=== PATIENT | female | born 1985 | race American Indian/Alaskan Native ===

== ENCOUNTER 2020-03-13 13:26 | Inpatient (IN) | payer MEDICAID, OTHER ==
[2020-03-13] MEDS ORDERED: Sodium Chloride 0.9% 1,000 ML IV ONE (13:56)
[2020-03-13] MEDS ORDERED: Acetaminophen 500 MG Tab PO ONE (13:56)
[2020-03-13] MEDS ORDERED: Sodium Chloride 0.9% 10 ML Syringe FLUSH PRN (13:56)
[2020-03-13] MEDS ORDERED: Sodium Chloride 0.9% 2.5 ML Syringe FLUSH PRN (13:56)
[2020-03-13] MEDS ORDERED: Ketorolac 15 MG/ML SDV IVPUSH ONE (13:57)
--- NOTE | 2020-03-13 13:59 | EDM.PDOC ---
ED HPI GENERAL MEDICAL PROBLEM - General Chief Complaint: Respiratory Problem Stated Complaint: SHORTNESS OF BREATH,COUGH,WEAK Time Seen by Provider: 03/13/20 13:45 Source of Information: Reports: Patient History Limitations: Reports: No Limitations - History of Present Illness INITIAL COMMENTS - FREE TEXT/NARRATIVE: 34-year-old female no significant past medical history presents for cough, chest tightness, shortness of breath, body aches, subjective fever for the last week. She notes that she did have positive exposure to someone that was exposed to Covid while in court last week. She states that about a week ago she had some body aches, generalized weakness, nonproductive cough. Symptoms seem to be improving, but then a couple of days ago she started to have a productive cough, worsening shortness of breath, worsening body aches. generalized Pain Score (Numeric/FACES): 9 - Related Data Allergies Allergy/AdvReac Type Severity Reaction Status Date / Time No Known Allergies Allergy Verified 03/25/14 18:33 [facility] Home Meds: Home Meds Multivitamin [Multiple Vitamins] 1 tab PO DAILY 03/13/20 [History] Past Medical History - Past Health History Medical/Surgical History: Denies Medical/Surgical History Other Gastrointestinal History: gall stones IMAGING ASSISTANT History: Reports: Other IMAGING ASSISTANT History: Other Musculoskeletal History: taylor in bilat knees Neurological History: Reports: Migraines - Infectious Disease History Infectious Disease History: Reports: None - Past Surgical History GI Surgical History: Reports: Cholecystectomy Female Surgical History: Reports: Tubal Ligation Social & Family History - Family History Family Medical History: No Pertinent Family History - Caffeine Use Caffeine Use: Reports: None - Recreational Drug Use Recreational Drug Use: No ED ROS GENERAL - Review of Systems Review Of Systems: Comprehensive ROS is negative, except as noted in HPI. ED EXAM, GENERAL - Physical Exam Exam: See Below Exam Limited By: No Limitations General Appearance: Alert, WD/WN, No Apparent Distress Throat/Mouth: Normal Inspection, Normal Oropharynx, Normal Voice, No Airway Compromise Head: Atraumatic, Normocephalic Neck: Normal Inspection Respiratory/Chest: No Respiratory Distress, Lungs Clear, Normal Breath Sounds, No Accessory Muscle Use Cardiovascular: Normal Peripheral Pulses, Regular Rate, Rhythm Extremities: Normal Inspection Neurological: Alert, Normal Gait Psychiatric: Normal Affect, Normal Mood Skin Exam: Warm, Dry, Intact #1 Interpretation EKG Date: 03/13/20 Time: 16:40 Rhythm: NSR Rate (Beats/Min): 71 [place]: Normal P-Wave: Present QRS: Normal ST-T: Normal QT: Prolonged (640) MO/PQ Interval: 162 Comparison: NA - No Prior EKG (non ischemic) Course - Vital Signs Last Recorded V/S: Last Vital Signs Temp 98.0 F 03/13/20 13:43 Pulse 93 03/13/20 13:43 Resp 18 03/13/20 13:43 BP 130/80 03/13/20 13:43 Pulse Ox 93 L 03/13/20 13:43 - Orders/Labs/Meds Orders: Active Orders 24 hr Category Date Time Status EKG Documentation Completion [RC] STAT Care 03/13/20 15:04 Active Pulse Oximetry [RC] ASDIRECTED Care 03/13/20 13:56 Active CORONAVIRUS COVID-19 PCR PHL Stat Lab 03/13/20 14:22 Received Sodium Chloride 0.9% [Saline Flush] Med 03/13/20 13:56 Active 10 ml FLUSH ASDIRECTED PRN Sodium Chloride 0.9% [Saline Flush] Med 03/13/20 13:56 Active 2.5 ml FLUSH ASDIRECTED PRN Saline Lock Insert [OM.PC] Stat Oth 03/13/20 13:56 Ordered Medication Orders Sodium Chloride (Saline Flush) 10 ml FLUSH ASDIRECTED PRN PRN Reason: Keep Vein Open Last Admin: 03/13/20 14:21 Dose: 10 ml Documented by: GIULIANO Sodium Chloride (Saline Flush) 2.5 ml FLUSH ASDIRECTED PRN PRN Reason: Keep Vein Open Last Admin: 03/13/20 14:20 Dose: 2.5 ml Documented by: GIULIANO Labs: Laboratory Tests 03/13/20 03/13/20 03/13/20 Range/Units 14:15 14:15 14:15 WBC 4.68 (4.0-11.0) K/uL RBC 5.21 (4.30-5.90) M/uL Hgb 14.2 (12.0-16.0) g/dL Hct 43.1 (36.0-46.0) % MCV 82.7 (80.0-98.0) fL MCH 27.3 (27.0-32.0) pg MCHC 32.9 (31.0-37.0) g/dL RDW Std Deviation 42.6 (28.0-62.0) fl RDW Coeff of Enedelia 14 (11.0-15.0) % Plt Count 153 (150-400) K/uL MPV 10.30 (7.40-12.00) fL Neut % (Auto) 69.0 (48.0-80.0) % Lymph % (Auto) 23.3 (16.0-40.0) % Tillman % (Auto) 7.3 (0.0-15.0) % Eos % (Auto) 0.2 (0.0-7.0) % Baso % (Auto) 0.2 (0.0-1.5) % Neut # (Auto) 3.2 (1.4-5.7) K/uL Lymph # (Auto) 1.1 (0.6-2.4) K/uL Tillman # (Auto) 0.3 (0.0-0.8) K/uL Eos # (Auto) 0.0 (0.0-0.7) K/uL Baso # (Auto) 0.0 (0.0-0.1) K/uL Nucleated RBC % 0.0 /100WBC Nucleated RBCs # 0 K/uL Lactate 1.3 (0.20-2.00) mmol/L Sodium 138 (136-145) mmol/L Potassium 3.7 (3.5-5.1) mmol/L Chloride 103 (98-107) mmol/L Carbon Dioxide 25.8 (21.0-32.0) mmol/L BUN 9 (7.0-18.0) mg/dL Creatinine 0.8 (0.6-1.0) mg/dL Est Cr Clr Drug Dosing 78.37 mL/min Estimated GFR (MDRD) > 60.0 ml/min Glucose 96 (74-106) mg/dL Calcium 8.0 L (8.5-10.1) mg/dL Magnesium 2.1 (1.8-2.4) mg/dL Total Bilirubin 0.3 (0.2-1.0) mg/dL AST 142 H (15-37) IU/L ALT 172 H (14-63) IU/L Alkaline Phosphatase 97 (46-116) U/L Troponin I 0.063 H* (0.000-0.056) ng/mL C-Reactive Protein 1.80 H (0.00-0.90) mg/dL Total Protein 8.0 (6.4-8.2) g/dL Albumin 3.5 (3.4-5.0) g/dL Globulin 4.5 H (2.6-4.0) g/dL Albumin/Globulin Ratio 0.8 L (0.9-1.6) SARS CoV-2 RNA Rapid YANNI (NEGATIVE) 03/13/20 03/13/20 Range/Units 14:22 17:15 WBC (4.0-11.0) K/uL RBC (4.30-5.90) M/uL Hgb (12.0-16.0) g/dL Hct (36.0-46.0) % MCV (80.0-98.0) fL MCH (27.0-32.0) pg MCHC (31.0-37.0) g/dL RDW Std Deviation (28.0-62.0) fl RDW Coeff of Enedelia (11.0-15.0) % Plt Count (150-400) K/uL MPV (7.40-12.00) fL Neut % (Auto) (48.0-80.0) % Lymph % (Auto) (16.0-40.0) % Tillman % (Auto) (0.0-15.0) % Eos % (Auto) (0.0-7.0) % Baso % (Auto) (0.0-1.5) % Neut # (Auto) (1.4-5.7) K/uL Lymph # (Auto) (0.6-2.4) K/uL Tillman # (Auto) (0.0-0.8) K/uL Eos # (Auto) (0.0-0.7) K/uL Baso # (Auto) (0.0-0.1) K/uL Nucleated RBC % /100WBC Nucleated RBCs # K/uL Lactate (0.20-2.00) mmol/L Sodium (136-145) mmol/L Potassium (3.5-5.1) mmol/L Chloride (98-107) mmol/L Carbon Dioxide (21.0-32.0) mmol/L BUN (7.0-18.0) mg/dL Creatinine (0.6-1.0) mg/dL Est Cr Clr Drug Dosing mL/min Estimated GFR (MDRD) ml/min Glucose (74-106) mg/dL Calcium (8.5-10.1) mg/dL Magnesium (1.8-2.4) mg/dL Total Bilirubin (0.2-1.0) mg/dL AST (15-37) IU/L ALT (14-63) IU/L Alkaline Phosphatase (46-116) U/L Troponin I 0.058 H* (0.000-0.056) ng/mL C-Reactive Protein (0.00-0.90) mg/dL Total Protein (6.4-8.2) g/dL Albumin (3.4-5.0) g/dL Globulin (2.6-4.0) g/dL Albumin/Globulin Ratio (0.9-1.6) SARS CoV-2 RNA Rapid YANNI POSITIVE H (NEGATIVE) Meds: Medications Generic Name Dose Route Start Last Admin Trade Name Freq PRN Reason Stop Dose Admin Sodium Chloride 10 ml 03/13/20 13:56 03/13/20 14:21 Saline Flush FLUSH 10 ml ASDIRECTED PRN Administration Keep Vein Open Sodium Chloride 2.5 ml 03/13/20 13:56 03/13/20 14:20 Saline Flush FLUSH 2.5 ml ASDIRECTED PRN Administration Keep Vein Open Discontinued Medications Generic Name Dose Route Start Last Admin Trade Name Freq PRN Reason Stop Dose Admin Acetaminophen 1,000 mg 03/13/20 13:56 03/13/20 14:20 Tylenol Extra Strength PO 03/13/20 13:57 1,000 mg ONETIME ONE Administration Sodium Chloride 1,000 mls @ 999 mls/hr 03/13/20 13:56 03/13/20 14:19 Normal Saline IV 03/13/20 14:56 999 mls/hr .Bolus ONE Administration Iopamidol 100 ml 03/13/20 16:00 03/13/20 16:03 Isovue Multipack-370 (76%) IVPUSH 03/13/20 16:01 100 ml ONETIME STA Administration Ketorolac Tromethamine 15 mg 03/13/20 13:57 03/13/20 14:20 Toradol IVPUSH 03/13/20 13:58 15 mg ONETIME ONE Administration - Re-Assessments/Exams Free Text/Narrative Re-Assessment/Exam: 03/13/20 14:07 Patient symptoms are highly suggestive of COVID-19 infection. Patient's oxygen saturations ranged from 92 to 94% on room air. Will follow up labs, chest x- ray, COVID-19 swab. Will treat symptomatically with IV fluid bolus, Toradol, acetaminophen. 03/13/20 15:06 Patient's Covid test is positive. She is also incidentally noted to have positive troponin concerning for myocarditis versus pulmonary embolism. Will get CTA chest to rule out pulmonary embolism. Patient will need admission. 03/13/20 18:03 Repeat troponin is not uptrending. Will admit patient. Departure - Departure Time of Disposition: 18:03 Disposition: Admitted As Inpatient 66 Condition: Good Clinical Impression: COVID-19 - Discharge Information Referrals: PCP,None [Primary Care Provider] - Forms: ED Department Discharge Sepsis Event Note (ED) - Evaluation Sepsis Screening Result: No Definite Risk - Focused Exam Vital Signs: Vital Signs Temp Pulse Resp BP Pulse Ox 03/13/20 13:43 98.0 F 93 18 130/80 93 L - My Orders Last 24 Hours: My Active Orders 03/13/20 13:56 Pulse Oximetry [RC] ASDIRECTED Sodium Chloride 0.9% [Saline Flush] 10 ml FLUSH ASDIRECTED PRN Sodium Chloride 0.9% [Saline Flush] 2.5 ml FLUSH ASDIRECTED PRN Saline Lock Insert [OM.PC] Stat 03/13/20 14:22 CORONAVIRUS COVID-19 PCR PHL Stat 03/13/20 15:04 EKG Documentation Completion [RC] STAT - Assessment/Plan Last 24 Hours: My Active Orders 03/13/20 13:56 Pulse Oximetry [RC] ASDIRECTED Sodium Chloride 0.9% [Saline Flush] 10 ml FLUSH ASDIRECTED PRN Sodium Chloride 0.9% [Saline Flush] 2.5 ml FLUSH ASDIRECTED PRN Saline Lock Insert [OM.PC] Stat 03/13/20 14:22 CORONAVIRUS COVID-19 PCR PHL Stat 03/13/20 15:04 EKG Documentation Completion [RC] STAT
--- NOTE | 2020-03-13 14:40 | CR ---
Indication: Shortness of breath and cough Comparison: None available. Technique: Single AP view chest Findings: There is hyperinflation and chronic interstitial change. There is demonstration of extensive interstitial and airspace opacities of the bilateral hemithoraces likely representing developing multifocal infiltrates. The cardiac silhouette is mildly prominent. The bony thorax is grossly intact. Impression: There is extensive interstitial and airspace opacities of the bilateral hemithoraces likely representing multifocal infiltrates. Dictated by Shreyas Shafer MD @ Mar 13 2020 2:37PM Signed by Dr. Shreyas Shafer @ Mar 13 2020 2:40PM
[2020-03-13 14:59] LABS: BLOOD UREA NITROGEN,BUN 9 mg/dL (7.0-18.0); CARBON DIOXIDE,CO2 25.8 mmol/L (21.0-32.0); CHLORIDE,CL 103 mmol/L (98-107); GLUCOSE RANDOM 96 mg/dL (74-106); POTASSIUM,K 3.7 mmol/L (3.5-5.1); SODIUM,NA 138 mmol/L (136-145)
[2020-03-13] MEDS ORDERED: Iopamidol 755 MG/ML 500 ML Multipack Bottle IVPUSH STA (16:00)
--- NOTE | 2020-03-13 16:20 | CT ---
Indication: Positive for treadwell virus 19 infection, elevated troponin Technique: Volumetric multidetector CT images of the chest were obtained after the administration of IV contrast. 100 cc Isovue 370 Comparison: None available. Findings: The thoracic inlet and thyroid gland are unremarkable. The thoracic aorta is nonaneurysmal. There is no definite central filling defect to suggest pulmonary embolism. Exam is mildly limited due to bolus timing and body habitus. There are reactive mediastinal and hilar lymph nodes. There is no axillary adenopathy. There is moderate central bronchial thickening and mucoid impaction of the lower lobe bronchi. There are ground-glass and consolidative airspace opacities predominantly in the peripheral upper in lower lobes likely representing sequela of atypical viral infiltrate. There is no pleural effusion or pneumothorax. There is no evidence of pulmonary mass or suspicious pulmonary nodule. The partially visualized upper abdominal viscera demonstrates marked hepatomegaly and hepatic steatosis. The thoracic vertebral body heights are grossly maintained with minimal endplate Schmorl`s defects. There is no significant spondylolisthesis or displaced fracture. Impression: No definite evidence of pulmonary embolus. Mildly limited due to contrast bolus timing and body habitus. Extensive ground-glass and airspace opacities consistent with history of atypical viral infiltrate. Please note that all CT scans at this facility use dose modulation, iterative reconstruction, and/or weight-based dosing when appropriate to reduce radiation dose to as low as reasonably achievable. Dictated by Shreyas Shafer MD @ Mar 13 2020 4:14PM Signed by Dr. Shreyas Shafer @ Mar 13 2020 4:19PM
[2020-03-13] MEDS ORDERED: Dexamethasone 10 MG/ML SDV IVPUSH ONE (18:06)
[2020-03-13] MEDS ORDERED: Ondansetron 4 MG Tab.DIS PO PRN (18:54)
--- NOTE | 2020-03-13 19:06 | PCM.HP.2 ---
<Valerie Browne - Last Filed: 03/13/20 19:27> H&P History of Present Illness - General Date of Service: 03/13/20 Admit Problem/Dx: Admission Diagnosis/Problem Admission Diagnosis/Problem Viral disease History Limitations: Reports: No Limitations - History of Present Illness Initial Comments - Free Text/Narative: Pt is a 34-year-old female with no significant past medical history who presents for worsening of her s.o.b, cough, chest tightness, and body aches which all started 1 week ago when she was exposed to someone with previous Covid exposure while in court last week. She states that about a week ago she had some body aches, generalized weakness, nonproductive cough. Symptoms had been improving, but then a couple of days ago she started to have a productive cough, worsening shortness of breath, worsening body aches and noted chest pain with cough. Denied any fever, chills, nausea, vomiting, diarrhea. No history of prev noted chest pain. Denies any alleviating factors but states her chest pain is worsened with cough. Onset of Symptoms: Reports: Gradual Duration of Symptoms: Reports: Getting Worse Location: Reports: Chest Quality: Reports: Ache Severity: Moderate Worsens with: Reports: Other (cough) Associated Symptoms: Reports: Cough, Weakness generalized Pain Score (Numeric/FACES): 9 - Related Data Allergies/Adverse Reactions: Allergies Allergy/AdvReac Type Severity Reaction Status Date / Time No Known Allergies Allergy Verified 03/14/20 16:03 Home Medications: Home Meds Multivitamin [Multiple Vitamins] 1 tab PO DAILY 03/13/20 [History] Albuterol/Ipratropium [Combivent Respimat] 1 gm INH Q4HRRT 30 Days #1 inhaler 03/15/20 [Rx] Benzonatate [Tessalon Perle] 100 mg PO TID 14 Days #42 capsule 03/15/20 [Rx] Codeine/guaiFENesin [Robitussin AC] 5 ml PO Q4H 30 Days #1 cup 03/15/20 [Rx] Past Medical History - Past Health History Medical/Surgical History: Denies Medical/Surgical History Other Gastrointestinal History: gall stones 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 OB/BYN History: Other Musculoskeletal History: taylor in bilat knees Neurological History: Reports: Migraines - Infectious Disease History Infectious Disease History: Reports: None - Past Surgical History GI Surgical History: Reports: Cholecystectomy Female Surgical History: Reports: Tubal Ligation Social & Family History - Family History Family Medical History: No Pertinent Family History - Caffeine Use Caffeine Use: Reports: None - Recreational Drug Use Recreational Drug Use: No H&P Review of Systems - Review of Systems: Review Of Systems: Comprehensive ROS is negative, except as noted in HPI. Exam - Exam Exam: See Below - Vital Signs Vital Signs: Last Vital Signs Temp 98.0 F 03/13/20 13:43 Pulse 93 03/13/20 13:43 Resp 18 03/13/20 13:43 BP 130/80 03/13/20 13:43 Pulse Ox 93 L 03/13/20 13:43 Weight: 113.398 kg - Exam Quality Assessment: DVT Prophylaxis. No: Supplemental Oxygen General: Alert, Oriented, Cooperative HEENT: Conjunctiva Clear, EOMI, Mucosa Moist & [place], Pupils Equal, Pupils Reactive, PERRLA Neck: Supple, Trachea Midline Lungs: Clear to Auscultation, Normal Respiratory Effort Cardiovascular: Regular Rate, Regular Rhythm GI/Abdominal Exam: Normal Bowel Sounds, Soft, Non-Tender Extremities: Normal Inspection, Normal Range of Motion, No Pedal Edema, Normal Capillary Refill Peripheral Pulses: 2+: Radial (L), Radial (R), Dorsalis Pedis (L), Dorsalis Pedis (R) Skin: Warm, Dry, Intact Neurological: Cranial Nerves Intact, Reflexes Equal Bilateral Neuro Extensive - Mental Status: Alert, Oriented x3, Normal Mood/Affect, Normal Cognition, Memory Intact Neuro Extensive - Motor, Sensory, Reflexes: CN II-XII Intact, Normal Gait, Normal Reflexes DTR: 2+: Bicep (L), Bicep (R), Patella (L), Patella (R) Psychiatric: Alert, Normal Affect, Normal Mood - Patient Data Lab Results Last 24 hrs: Laboratory Results - last 24 hr 03/13/20 03/13/20 03/13/20 Range/Units 14:15 14:15 14:15 WBC 4.68 (4.0-11.0) K/uL RBC 5.21 (4.30-5.90) M/uL Hgb 14.2 (12.0-16.0) g/dL Hct 43.1 (36.0-46.0) % MCV 82.7 (80.0-98.0) fL MCH 27.3 (27.0-32.0) pg MCHC 32.9 (31.0-37.0) g/dL RDW Std Deviation 42.6 (28.0-62.0) fl RDW Coeff of Enedelia 14 (11.0-15.0) % Plt Count 153 (150-400) K/uL MPV 10.30 (7.40-12.00) fL Neut % (Auto) 69.0 (48.0-80.0) % Lymph % (Auto) 23.3 (16.0-40.0) % Elk % (Auto) 7.3 (0.0-15.0) % Eos % (Auto) 0.2 (0.0-7.0) % Baso % (Auto) 0.2 (0.0-1.5) % Neut # (Auto) 3.2 (1.4-5.7) K/uL Lymph # (Auto) 1.1 (0.6-2.4) K/uL [place]k # (Auto) 0.3 (0.0-0.8) K/uL Eos # (Auto) 0.0 (0.0-0.7) K/uL Baso # (Auto) 0.0 (0.0-0.1) K/uL Nucleated RBC % 0.0 /100WBC Nucleated RBCs # 0 K/uL Lactate 1.3 (0.20-2.00) mmol/L Sodium 138 (136-145) mmol/L Potassium 3.7 (3.5-5.1) mmol/L Chloride 103 (98-107) mmol/L Carbon Dioxide 25.8 (21.0-32.0) mmol/L BUN 9 (7.0-18.0) mg/dL Creatinine 0.8 (0.6-1.0) mg/dL Est Cr Clr Drug Dosing 78.37 mL/min Estimated GFR (MDRD) > 60.0 ml/min Glucose 96 (74-106) mg/dL Calcium 8.0 L (8.5-10.1) mg/dL Magnesium 2.1 (1.8-2.4) mg/dL Total Bilirubin 0.3 (0.2-1.0) mg/dL AST 142 H (15-37) IU/L ALT 172 H (14-63) IU/L Alkaline Phosphatase 97 (46-116) U/L Troponin I 0.063 H* (0.000-0.056) ng/mL C-Reactive Protein 1.80 H (0.00-0.90) mg/dL Total Protein 8.0 (6.4-8.2) g/dL Albumin 3.5 (3.4-5.0) g/dL Globulin 4.5 H (2.6-4.0) g/dL Albumin/Globulin Ratio 0.8 L (0.9-1.6) SARS CoV-2 RNA Rapid YANNI (NEGATIVE) 03/13/20 03/13/20 Range/Units 14:22 17:15 WBC (4.0-11.0) K/uL RBC (4.30-5.90) M/uL Hgb (12.0-16.0) g/dL Hct (36.0-46.0) % MCV (80.0-98.0) fL MCH (27.0-32.0) pg MCHC (31.0-37.0) g/dL RDW Std Deviation (28.0-62.0) fl RDW Coeff of Enedelia (11.0-15.0) % Plt Count (150-400) K/uL MPV (7.40-12.00) fL Neut % (Auto) (48.0-80.0) % Lymph % (Auto) (16.0-40.0) % Elk % (Auto) (0.0-15.0) % Eos % (Auto) (0.0-7.0) % Baso % (Auto) (0.0-1.5) % Neut # (Auto) (1.4-5.7) K/uL Lymph # (Auto) (0.6-2.4) K/uL Elk # (Auto) (0.0-0.8) K/uL Eos # (Auto) (0.0-0.7) K/uL Baso # (Auto) (0.0-0.1) K/uL Nucleated RBC % /100WBC Nucleated RBCs # K/uL Lactate (0.20-2.00) mmol/L Sodium (136-145) mmol/L Potassium (3.5-5.1) mmol/L Chloride (98-107) mmol/L Carbon Dioxide (21.0-32.0) mmol/L BUN (7.0-18.0) mg/dL Creatinine (0.6-1.0) mg/dL Est Cr Clr Drug Dosing mL/min Estimated GFR (MDRD) ml/min Glucose (74-106) mg/dL Calcium (8.5-10.1) mg/dL Magnesium (1.8-2.4) mg/dL Total Bilirubin (0.2-1.0) mg/dL AST (15-37) IU/L ALT (14-63) IU/L Alkaline Phosphatase (46-116) U/L Troponin I 0.058 H* (0.000-0.056) ng/mL C-Reactive Protein (0.00-0.90) mg/dL Total Protein (6.4-8.2) g/dL Albumin (3.4-5.0) g/dL Globulin (2.6-4.0) g/dL Albumin/Globulin Ratio (0.9-1.6) SARS CoV-2 RNA Rapid YANNI POSITIVE H (NEGATIVE) Result Diagrams: 03/13/20 14:15 03/13/20 14:15 Sepsis Event Note - Evaluation Sepsis Screening Result: No Definite Risk - Focused Exam Vital Signs: Vital Signs Temp Pulse Resp BP Pulse Ox 03/13/20 13:43 98.0 F 93 18 130/80 93 L - Problem List (1) Transaminitis SNOMED Code(s): 465283938, 096248041 ICD Code: R74.01 - ELEVATION OF LEVELS OF LIVER TRANSAMINASE LEVELS Status: Acute (2) COVID-19 SNOMED Code(s): 040638249 ICD Code: U07.1 - COVID-19 Status: Acute Problem List Initiated/Reviewed/Updated: Yes Orders Last 24hrs: Active Orders 24 hr Category Date Time Status Patient Status [ADT] Routine ADT 03/13/20 18:06 Active Antiembolic Devices [RC] PER UNIT ROUTINE Care 03/13/20 18:55 Ordered Communication Order [RC] ROUTINE Care 03/13/20 19:04 Ordered EKG Documentation Completion [RC] STAT Care 03/13/20 15:04 Active Oxygen Therapy [RC] PRN Care 03/13/20 18:54 Ordered Pulse Oximetry [RC] ASDIRECTED Care 03/13/20 13:56 Active Pulse Oximetry [RC] CONTINUOUS Care 03/13/20 18:55 Ordered Telemetry Monitoring [Cardiac Monitoring] [RC] . Care 03/13/20 18:09 Active DIRECTED Up ad Jennifer [RC] ASDIRECTED Care 03/13/20 18:54 Ordered VTE/DVT Education [RC] PER UNIT ROUTINE Care 03/13/20 18:54 Ordered Vital Signs [RC] Q4H Care 03/13/20 18:54 Ordered Heart Healthy Diet [DIET] Diet 03/13/20 Dinner Ordered CORONAVIRUS COVID-19 PCR PHL Stat Lab 03/13/20 14:22 Received Acetaminophen [TylenoL] Med 03/13/20 18:54 Ordered 650 mg PO Q4H PRN Benzonatate [Tessalon Perles] Med 03/13/20 19:03 Ordered 100 mg PO TID PRN Enoxaparin [Lovenox] Med 03/13/20 19:00 Ordered 60 mg SUBCUT Q24H Lactated Ringers @ 125 MLS/HR(1000ml) Med 03/13/20 19:00 Ordered Lactated Ringers [Ringers, Lactated] 1,000 ml IV ASDIRECTED Ondansetron [Zofran ODT] Med 03/13/20 18:54 Ordered 4 mg PO Q4H PRN Pantoprazole [ProTONIX] Med 03/14/20 09:00 Ordered 40 mg PO DAILY Remdesivir (Eua) [Remdesivir (EUA)] 100 mg Med 03/13/20 19:15 Ordered Sodium Chloride 0.9% [Normal Saline] 100 ml IV Q24H Sodium Chloride 0.9% [Saline Flush] Med 03/13/20 13:56 Active 10 ml FLUSH ASDIRECTED PRN Sodium Chloride 0.9% [Saline Flush] Med 03/13/20 13:56 Active 2.5 ml FLUSH ASDIRECTED PRN dexAMETHasone Med 03/14/20 09:00 Ordered 6 mg PO DAILY Saline Lock Insert [OM.PC] Stat Oth 03/13/20 13:56 Ordered Sequential Compression Device [OM.PC] Per Unit Routine Oth 03/13/20 18:55 Ordered Resuscitation Status Routine Resus Stat 03/13/20 18:54 Ordered Medication Orders Acetaminophen (Tylenol) 650 mg PO Q4H PRN PRN Reason: Pain (Mild 1-3)/fever Benzonatate (Tessalon Perles) 100 mg PO TID PRN PRN Reason: Cough Dexamethasone (Dexamethasone) 6 mg PO DAILY [facility] Stop: 03/24/20 09:01 Enoxaparin Sodium (Lovenox) 60 mg SUBCUT Q24H [facility] Lactated Ringer's (Ringers, Lactated) 1,000 mls @ 125 mls/hr IV ASDIRECTED [facility] Remdesivir 100 mg/ Sodium (Chloride) 100 mls @ 100 mls/hr IV Q24H [facility] Stop: 03/16/20 20:14 Ondansetron HCl (Zofran Odt) 4 mg PO Q4H PRN PRN Reason: nausea, able to take PO Pantoprazole Sodium (Protonix) 40 mg PO DAILY [facility] Sodium Chloride (Saline Flush) 10 ml FLUSH ASDIRECTED PRN PRN Reason: Keep Vein Open Last Admin: 03/13/20 14:21 Dose: 10 ml Documented by: GIULIANO Sodium Chloride (Saline Flush) 2.5 ml FLUSH ASDIRECTED PRN PRN Reason: Keep Vein Open Last Admin: 03/13/20 14:20 Dose: 2.5 ml Documented by: GIULIANO Assessment/Plan Comment:: Pt is a 34 y/o F with no significant PMHx. Admitted for COVID 19 with Myocarditis. 1. COVID 19: -SOB, worsening non productive cough Tessalon pearls to help alleviate chest pain, -10 days 6mg dexamethasone, -Remdesivir 200 mg given today, followed by 4 days 100 mg. -CXR and CTA- indicated ground glass opacities consistent with Covid pneumonia. -Full dose Lovenox weight based 60 subq Daily -No wbc, pt is afebrile and on R.A. No antibiotics at this time. 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: -elevated troponins, trending down last 0.058 -chest pain with cough; gievn Tessalon pearls for symptomatic releif -tele -echo -Tylenol for pain 3.Transaminitis: mild, will avoid hepatotoxic agents, trend daily bmp with morning labs Admit for obs, Activity ad jennifer, GI ppx Pantoprazole 40, 60 Lovenox DVT ppx weight based <ArieHoraciogen - Last Filed: 03/19/20 12:48> H&P History of Present Illness - General Admit Problem/Dx: Admission Diagnosis/Problem Admission Diagnosis/Problem Viral disease generalized Pain Score (Numeric/FACES): 0 Headache Pain Score (Numeric/FACES): 6 Exam - Vital Signs Vital Signs: Last Vital Signs Temp 36.8 C 03/15/20 13:00 Pulse 68 03/15/20 13:00 Resp 18 03/15/20 13:00 BP 115/75 03/15/20 13:00 Pulse Ox 95 03/15/20 13:00 - Patient Data Result Diagrams: 03/15/20 07:40 03/15/20 07:40 Assessment/Plan Comment:: I performed a history and physical exam of the patient and discussed management with resident. I have reviewed the residents note and agree with documented findings and plan unless otherwise specified in my note.
[2020-03-13] MEDS ORDERED: REMDESIVIR (EUA) 100 MG in Sodium Chloride 0.9% 100 ML IV SCH (19:15)
[2020-03-13] MEDS: Enoxaparin 40 MG/0.4 ML Syringe SUBCUT SCH (19:40)
[2020-03-13] MEDS: Benzonatate 100 MG Cap PO PRN (21:27)
[2020-03-13] MEDS: Lactated Ringers 1,000 ML IV SCH (21:32)
[2020-03-13] MEDS ORDERED: Codeine/guaiFENesin 10-100 MG/5 ML Syrup 5 ML Cup PO SCH (22:30)
[2020-03-13] MEDS: Morphine 2 MG/ML SYRINGE IVPUSH PRN (23:00)
[2020-03-13] MEDS: Codeine/guaiFENesin 10-100 MG/5 ML Syrup 5 ML Cup PO SCH (23:02)
[2020-03-13] MEDS: Albuterol/Ipratropium 4 GM Inhalation Spray INH SCH (23:02)
[2020-03-14] MEDS: Morphine 2 MG/ML SYRINGE IVPUSH PRN (04:15)
[2020-03-14] MEDS: Codeine/guaiFENesin 10-100 MG/5 ML Syrup 5 ML Cup PO SCH ×5 (04:15→21:15)
[2020-03-14] MEDS: Albuterol/Ipratropium 4 GM Inhalation Spray INH SCH ×6 (04:26→21:15)
[2020-03-14] MEDS: Lactated Ringers 1,000 ML IV SCH (05:40)
[2020-03-14] MEDS: Acetaminophen 325 MG Tab PO PRN ×2 (05:44→19:54)
[2020-03-14] MEDS: Pantoprazole 40 MG Tab.CR PO SCH (08:00)
[2020-03-14] MEDS: Dexamethasone 4 MG Tab PO SCH (08:00)
[2020-03-14] MEDS: Benzonatate 100 MG Cap PO PRN ×2 (08:01→19:55)
[2020-03-14 09:41] LABS: BLOOD UREA NITROGEN,BUN 7 mg/dL (7.0-18.0); CARBON DIOXIDE,CO2 28.5 mmol/L (21.0-32.0); CHLORIDE,CL 103 mmol/L (98-107); GLUCOSE RANDOM 105 mg/dL (74-106); POTASSIUM,K 3.9 mmol/L (3.5-5.1); SODIUM,NA 138 mmol/L (136-145)
[2020-03-14] MEDS ORDERED: Lactated Ringers 1,000 ML IV SCH (10:15)
--- NOTE | 2020-03-14 11:56 | PCM.PN ---
<Valerie Browne - Last Filed: 03/14/20 11:49> - General Info Date of Service: 03/14/20 Admission Dx/Problem (Free Text): Admission Diagnosis/Problem Admission Diagnosis/Problem Viral disease Subjective Update: Pt is a 34 y/o F admitted for COVID19 associated myocarditis. There were no overnight events. States she feels better this morning. Medication has helped with cough and associated chest pain. Otherwise denied any nausea, vomiting, s.o .b, diarrhea, appetite changes. Functional Status: Reports: Pain Controlled - Review of Systems General: Reports: No Symptoms HEENT: Reports: No Symptoms Pulmonary: Reports: No Symptoms, Pleuritic Chest Pain, Cough. Denies: Shortness of Breath, Sputum, Wheezing Cardiovascular: Reports: Chest Pain. Denies: Palpitations, Dyspnea on Exertion, Lightheadedness Gastrointestinal: Reports: No Symptoms Genitourinary: Reports: No Symptoms Musculoskeletal: Reports: No Symptoms Skin: Reports: No Symptoms Neurological: Reports: No Symptoms Psychiatric: Reports: No Symptoms - Patient Data Vitals - Most Recent: Last Vital Signs Temp 97.7 F 03/14/20 11:34 Pulse 66 03/14/20 11:34 Resp 18 03/14/20 11:34 BP 123/65 03/14/20 11:34 Pulse Ox 90 L 03/14/20 11:34 Weight - Most Recent: 120.61 kg I&O - Last 24 Hours: Intake & Output 03/13/20 03/14/20 03/14/20 22:59 06:59 14:59 Intake Total 1826 Output Total 1000 Balance 826 Lab Results Last 24 Hours: Laboratory Results - last 24 hr 03/13/20 03/13/20 03/13/20 Range/Units 14:15 14:15 14:15 WBC 4.68 (4.0-11.0) K/uL RBC 5.21 (4.30-5.90) M/uL Hgb 14.2 (12.0-16.0) g/dL Hct 43.1 (36.0-46.0) % MCV 82.7 (80.0-98.0) fL MCH 27.3 (27.0-32.0) pg MCHC 32.9 (31.0-37.0) g/dL RDW Std Deviation 42.6 (28.0-62.0) fl RDW Coeff of Enedelia 14 (11.0-15.0) % Plt Count 153 (150-400) K/uL MPV 10.30 (7.40-12.00) fL Neut % (Auto) 69.0 (48.0-80.0) % Lymph % (Auto) 23.3 (16.0-40.0) % [place] % (Auto) 7.3 (0.0-15.0) % Eos % (Auto) 0.2 (0.0-7.0) % Baso % (Auto) 0.2 (0.0-1.5) % Neut # (Auto) 3.2 (1.4-5.7) K/uL Lymph # (Auto) 1.1 (0.6-2.4) K/uL [place] # (Auto) 0.3 (0.0-0.8) K/uL Eos # (Auto) 0.0 (0.0-0.7) K/uL Baso # (Auto) 0.0 (0.0-0.1) K/uL Nucleated RBC % 0.0 /100WBC Nucleated RBCs # 0 K/uL Lactate 1.3 (0.20-2.00) mmol/L Sodium 138 (136-145) mmol/L Potassium 3.7 (3.5-5.1) mmol/L Chloride 103 (98-107) mmol/L Carbon Dioxide 25.8 (21.0-32.0) mmol/L BUN 9 (7.0-18.0) mg/dL Creatinine 0.8 (0.6-1.0) mg/dL Est Cr Clr Drug Dosing 78.37 mL/min Estimated GFR (MDRD) > 60.0 ml/min Glucose 96 (74-106) mg/dL Calcium 8.0 L (8.5-10.1) mg/dL Phosphorus (2.6-4.7) mg/dL Magnesium 2.1 (1.8-2.4) mg/dL Total Bilirubin 0.3 (0.2-1.0) mg/dL AST 142 H (15-37) IU/L ALT 172 H (14-63) IU/L Alkaline Phosphatase 97 (46-116) U/L Troponin I 0.063 H* (0.000-0.056) ng/mL C-Reactive Protein 1.80 H (0.00-0.90) mg/dL Total Protein 8.0 (6.4-8.2) g/dL Albumin 3.5 (3.4-5.0) g/dL Globulin 4.5 H (2.6-4.0) g/dL Albumin/Globulin Ratio 0.8 L (0.9-1.6) SARS CoV-2 RNA Rapid YANNI (NEGATIVE) 03/13/20 03/13/20 03/14/20 Range/Units 14:22 17:15 09:01 WBC 5.32 (4.0-11.0) K/uL RBC 4.76 (4.30-5.90) M/uL Hgb 12.7 (12.0-16.0) g/dL Hct 39.7 (36.0-46.0) % MCV 83.4 (80.0-98.0) fL MCH 26.7 L (27.0-32.0) pg MCHC 32.0 (31.0-37.0) g/dL RDW Std Deviation 42.9 (28.0-62.0) fl RDW Coeff of Enedelia 14 (11.0-15.0) % Plt Count 162 (150-400) K/uL MPV 10.00 (7.40-12.00) fL Neut % (Auto) 71.4 (48.0-80.0) % Lymph % (Auto) 22.6 (16.0-40.0) % [place] % (Auto) 6.0 (0.0-15.0) % Eos % (Auto) 0.0 (0.0-7.0) % Baso % (Auto) 0.0 (0.0-1.5) % Neut # (Auto) 3.8 (1.4-5.7) K/uL Lymph # (Auto) 1.2 (0.6-2.4) K/uL [place] # (Auto) 0.3 (0.0-0.8) K/uL Eos # (Auto) 0.0 (0.0-0.7) K/uL Baso # (Auto) 0.0 (0.0-0.1) K/uL Nucleated RBC % 0.0 /100WBC Nucleated RBCs # 0 K/uL Lactate (0.20-2.00) mmol/L Sodium (136-145) mmol/L Potassium (3.5-5.1) mmol/L Chloride (98-107) mmol/L Carbon Dioxide (21.0-32.0) mmol/L BUN (7.0-18.0) mg/dL Creatinine (0.6-1.0) mg/dL Est Cr Clr Drug Dosing mL/min Estimated GFR (MDRD) ml/min Glucose (74-106) mg/dL Calcium (8.5-10.1) mg/dL Phosphorus (2.6-4.7) mg/dL Magnesium (1.8-2.4) mg/dL Total Bilirubin (0.2-1.0) mg/dL AST (15-37) IU/L ALT (14-63) IU/L Alkaline Phosphatase (46-116) U/L Troponin I 0.058 H* (0.000-0.056) ng/mL C-Reactive Protein (0.00-0.90) mg/dL Total Protein (6.4-8.2) g/dL Albumin (3.4-5.0) g/dL Globulin (2.6-4.0) g/dL Albumin/Globulin Ratio (0.9-1.6) SARS CoV-2 RNA Rapid YANNI POSITIVE H (NEGATIVE) 03/14/20 Range/Units 09:01 WBC (4.0-11.0) K/uL RBC (4.30-5.90) M/uL Hgb (12.0-16.0) g/dL Hct (36.0-46.0) % MCV (80.0-98.0) fL MCH (27.0-32.0) pg MCHC (31.0-37.0) g/dL RDW Std Deviation (28.0-62.0) fl RDW Coeff of Enedelia (11.0-15.0) % Plt Count (150-400) K/uL MPV (7.40-12.00) fL Neut % (Auto) (48.0-80.0) % Lymph % (Auto) (16.0-40.0) % [place] % (Auto) (0.0-15.0) % Eos % (Auto) (0.0-7.0) % Baso % (Auto) (0.0-1.5) % Neut # (Auto) (1.4-5.7) K/uL Lymph # (Auto) (0.6-2.4) K/uL [place] # (Auto) (0.0-0.8) K/uL Eos # (Auto) (0.0-0.7) K/uL Baso # (Auto) (0.0-0.1) K/uL Nucleated RBC % /100WBC Nucleated RBCs # K/uL Lactate (0.20-2.00) mmol/L Sodium 138 (136-145) mmol/L Potassium 3.9 (3.5-5.1) mmol/L Chloride 103 (98-107) mmol/L Carbon Dioxide 28.5 (21.0-32.0) mmol/L BUN 7 (7.0-18.0) mg/dL Creatinine 0.7 (0.6-1.0) mg/dL Est Cr Clr Drug Dosing 89.56 mL/min Estimated GFR (MDRD) > 60.0 ml/min Glucose 105 (74-106) mg/dL Calcium 7.8 L (8.5-10.1) mg/dL Phosphorus 2.8 (2.6-4.7) mg/dL Magnesium 2.0 (1.8-2.4) mg/dL Total Bilirubin 0.5 (0.2-1.0) mg/dL AST 483 H (15-37) IU/L ALT 393 H (14-63) IU/L Alkaline Phosphatase 160 H (46-116) U/L Troponin I (0.000-0.056) ng/mL C-Reactive Protein (0.00-0.90) mg/dL Total Protein 7.4 (6.4-8.2) g/dL Albumin 3.1 L (3.4-5.0) g/dL Globulin 4.3 H (2.6-4.0) g/dL Albumin/Globulin Ratio 0.7 L (0.9-1.6) SARS CoV-2 RNA Rapid YANNI (NEGATIVE) Med Orders - Current: Current Medications Acetaminophen (Tylenol) 650 mg PO Q4H PRN PRN Reason: Pain (Mild 1-3)/fever Last Admin: 03/14/20 05:44 Dose: 650 mg Documented by: Albuterol/Ipratropium (Combivent Respimat) 0 gm INH Q4HRRT [facility] Stop: 03/23/20 00:02 Last Admin: 03/14/20 09:17 Dose: 1 puff Documented by: Benzonatate (Tessalon Perles) 100 mg PO TID PRN PRN Reason: Cough Last Admin: 03/14/20 08:01 Dose: 100 mg Documented by: Dexamethasone (Dexamethasone) 6 mg PO DAILY [facility] Stop: 03/24/20 09:01 Last Admin: 03/14/20 08:00 Dose: 6 mg Documented by: Enoxaparin Sodium (Lovenox) 60 mg SUBCUT Q24H [facility] Last Admin: 03/13/20 19:40 Dose: 60 mg Documented by: Guaifenesin/Codeine Phosphate (Robitussin Ac) 5 ml PO Q4H [facility] Last Admin: 03/14/20 07:59 Dose: 5 ml Documented by: Lactated Ringer's (Ringers, Lactated) 1,000 mls @ 100 mls/hr IV Q10H [facility] Stop: 03/14/20 20:14 Morphine Sulfate (Morphine) 1 mg IVPUSH Q4H PRN PRN Reason: pain Last Admin: 03/14/20 04:15 Dose: 1 mg Documented by: Ondansetron HCl (Zofran Odt) 4 mg PO Q4H PRN PRN Reason: nausea, able to take PO Pantoprazole Sodium (Protonix) 40 mg PO DAILY [facility] Last Admin: 03/14/20 08:00 Dose: 40 mg Documented by: Sodium Chloride (Saline Flush) 10 ml FLUSH ASDIRECTED PRN PRN Reason: Keep Vein Open Last Admin: 03/13/20 14:21 Dose: 10 ml Documented by: Sodium Chloride (Saline Flush) 2.5 ml FLUSH ASDIRECTED PRN PRN Reason: Keep Vein Open Last Admin: 03/13/20 14:20 Dose: 2.5 ml Documented by: Discontinued Medications Acetaminophen (Tylenol Extra Strength) 1,000 mg PO ONETIME ONE Stop: 03/13/20 13:57 Last Admin: 03/13/20 14:20 Dose: 1,000 mg Documented by: Albuterol/Ipratropium (Combivent Respimat) 0 gm INH Q4H [facility] Stop: 03/23/20 00:00 Last Admin: 03/14/20 08:10 Dose: Not Given Documented by: Dexamethasone (Decadron) 10 mg IVPUSH ONETIME ONE Stop: 03/13/20 18:07 Last Admin: 03/13/20 19:03 Dose: 10 mg Documented by: Guaifenesin/Codeine Phosphate (Robitussin Ac) 5 ml PO Q4H [facility] Last Admin: 03/14/20 07:30 Dose: Not Given Documented by: Sodium Chloride (Normal Saline) 1,000 mls @ 999 mls/hr IV .Bolus ONE Stop: 03/13/20 14:56 Last Admin: 03/13/20 14:19 Dose: 999 mls/hr Documented by: Remdesivir 200 mg/ Sodium (Chloride) 250 mls @ 250 mls/hr IV ONETIME ONE Stop: 03/13/20 18:10 Last Admin: 03/13/20 19:47 Dose: Not Given Documented by: Lactated Ringer's (Ringers, Lactated) 1,000 mls @ 125 mls/hr IV ASDIRECTED [facility] Last Admin: 03/14/20 05:40 Dose: 125 mls/hr Documented by: Remdesivir 100 mg/ Sodium (Chloride) 100 mls @ 100 mls/hr IV Q24H [facility] Stop: 03/17/20 20:29 Remdesivir 200 mg/ Sodium (Chloride) 250 mls @ 250 mls/hr IV ONETIME ONE Stop: 03/13/20 20:29 Last Admin: 03/13/20 19:46 Dose: 250 mls/hr Documented by: Iopamidol (Isovue Multipack-370 (76%)) 100 ml IVPUSH ONETIME STA Stop: 03/13/20 16:01 Last Admin: 03/13/20 16:03 Dose: 100 ml Documented by: Ketorolac Tromethamine (Toradol) 15 mg IVPUSH ONETIME ONE Stop: 03/13/20 13:58 Last Admin: 03/13/20 14:20 Dose: 15 mg Documented by: - Exam Quality Assessment: DVT Prophylaxis (weight based). No: Supplemental Oxygen General: Alert, Oriented, Cooperative, No Acute Distress HEENT: Pupils Equal, Pupils Reactive, EOMI, Mucous Membr. Moist/[place] Neck: Supple, Trachea Midline, No JVD Lungs: Clear to Auscultation, Normal Respiratory Effort Cardiovascular: Regular Rate, Regular Rhythm, No Murmurs. No: Rubs GI/Abdominal Exam: Normal Bowel Sounds, Soft, Non-Tender, No Distention Back Exam: Normal Inspection Extremities: Normal Inspection, Normal Range of Motion, No Pedal Edema, Normal Capillary Refill Peripheral Pulses: 2+: Radial (L), Radial (R), Dorsalis Pedis (L), Dorsalis Pedis (R) Skin: Warm, Dry Neurological: No New Focal Deficit Psy/Mental Status: Alert, Normal Affect, Normal Mood Sepsis Event Note - Evaluation Sepsis Screening Result: No Definite Risk - Focused Exam Vital Signs: Vital Signs Temp Pulse Resp BP Pulse Ox Pulse Ox 03/14/20 11:34 97.7 F 66 18 123/65 90 L 03/14/20 07:53 97.6 F 79 20 118/67 92 L 03/14/20 04:44 90 L 03/14/20 04:16 97.5 F 77 20 142/83 H 92 L 03/14/20 00:18 97.0 F 76 20 124/75 90 L - Problem List & Annotations (1) Transaminitis SNOMED Code(s): 920143127, 800784827 Code(s): R74.01 - ELEVATION OF LEVELS OF LIVER TRANSAMINASE LEVELS Status: Acute (2) COVID-19 SNOMED Code(s): 631844503 Code(s): U07.1 - COVID-19 Status: Acute - Problem List Review Problem List Initiated/Reviewed/Updated: Yes - My Orders Last 24 Hours: My Active Orders 03/13/20 Dinner Heart Healthy Diet [DIET] 03/13/20 18:54 Oxygen Therapy [RC] PRN Up ad Jennifer [RC] ASDIRECTED VTE/DVT Education [RC] Q12H Vital Signs [RC] Q4H Acetaminophen [TylenoL] 650 mg PO Q4H PRN Ondansetron [Zofran ODT] 4 mg PO Q4H PRN Resuscitation Status Routine 03/13/20 18:55 Antiembolic Devices [RC] Q12H Pulse Oximetry [RC] ASDIRECTED Sequential Compression Device [OM.PC] Per Unit Routine 03/13/20 19:00 Enoxaparin [Lovenox] 60 mg SUBCUT Q24H 03/13/20 19:03 Benzonatate [Tessalon Perles] 100 mg PO TID PRN 03/13/20 19:04 Communication Order [RC] ROUTINE 03/13/20 19:41 Cardiac Monitoring [RC] Q8H 03/14/20 08:00 Echo Comp wo Cont [US] Urgent 03/14/20 09:00 Pantoprazole [ProTONIX] 40 mg PO DAILY dexAMETHasone 6 mg PO DAILY - Plan Plan:: Pt is a 34 y/o F with no significant PMHx. Admitted for COVID 19 with Myocarditis. 1. COVID 19: -SOB, worsening non productive cough Tessalon pearls and Robitussin AC to help alleviate chest pain, -1/10 days 6mg dexamethasone, -D/C Remdesivir due to eleavted AST/ ASL. -CXR and CTA- indicated ground glass opacities consistent with Covid pneumonia. -Full dose Lovenox weight based 60 subq Daily -No wbc, pt is afebrile and on R.A. No antibiotics at this time. 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: -elevated troponins, trending down last 0.058 -chest pain with cough; gievn Tessalon pearls for symptomatic releif -tele -echo, looked normal but offical repot pending -Tylenol for pain -Morphine for pain 3.Transaminitis: will avoid hepatotoxic agents, d/c remdesivir, continue to trend daily bmp with morning labs Admit for obs, Activity ad jennifer, GI ppx Pantoprazole 40, 60 Lovenox DVT ppx weight based <Vianney Sargent - Last Filed: 03/19/20 12:42> - Patient Data Vitals - Most Recent: Last Vital Signs Temp 36.8 C 03/15/20 13:00 Pulse 68 03/15/20 13:00 Resp 18 03/15/20 13:00 BP 115/75 03/15/20 13:00 Pulse Ox 95 03/15/20 13:00 Med Orders - Current: Current Medications Discontinued Medications Acetaminophen (Tylenol Extra Strength) 1,000 mg PO ONETIME ONE Stop: 03/13/20 13:57 Last Admin: 03/13/20 14:20 Dose: 1,000 mg Documented by: Acetaminophen (Tylenol) 650 mg PO Q4H PRN PRN Reason: Pain (Mild 1-3)/fever Last Admin: 03/15/20 10:40 Dose: 650 mg Documented by: Albuterol/Ipratropium (Combivent Respimat) 0 gm INH Q4H [facility] Stop: 03/23/20 00:00 Last Admin: 03/14/20 08:10 Dose: Not Given Documented by: Albuterol/Ipratropium (Combivent Respimat) 0 gm INH Q4HRRT [facility] Stop: 03/23/20 00:02 Last Admin: 03/15/20 13:13 Dose: 1 puff Documented by: Benzonatate (Tessalon Perles) 100 mg PO TID PRN PRN Reason: Cough Last Admin: 03/14/20 19:55 Dose: 100 mg Documented by: Dexamethasone (Decadron) 10 mg IVPUSH ONETIME ONE Stop: 03/13/20 18:07 Last Admin: 03/13/20 19:03 Dose: 10 mg Documented by: Dexamethasone (Dexamethasone) 6 mg PO DAILY [facility] Stop: 03/24/20 09:01 Last Admin: 03/15/20 08:30 Dose: 6 mg Documented by: Enoxaparin Sodium (Lovenox) 60 mg SUBCUT Q24H [facility] Last Admin: 03/14/20 18:38 Dose: 60 mg Documented by: Guaifenesin/Codeine Phosphate (Robitussin Ac) 5 ml PO Q4H [facility] Last Admin: 03/14/20 07:30 Dose: Not Given Documented by: Guaifenesin/Codeine Phosphate (Robitussin Ac) 5 ml PO Q4H [facility] Last Admin: 03/15/20 12:16 Dose: 5 ml Documented by: Sodium Chloride (Normal Saline) 1,000 mls @ 999 mls/hr IV .Bolus ONE Stop: 03/13/20 14:56 Last Admin: 03/13/20 14:19 Dose: 999 mls/hr Documented by: Remdesivir 200 mg/ Sodium (Chloride) 250 mls @ 250 mls/hr IV ONETIME ONE Stop: 03/13/20 18:10 Last Admin: 03/13/20 19:47 Dose: Not Given Documented by: Lactated Ringer's (Ringers, Lactated) 1,000 mls @ 125 mls/hr IV ASDIRECTED [facility] Last Admin: 03/14/20 05:40 Dose: 125 mls/hr Documented by: Remdesivir 100 mg/ Sodium (Chloride) 100 mls @ 100 mls/hr IV Q24H [facility] Stop: 03/17/20 20:29 Remdesivir 200 mg/ Sodium (Chloride) 250 mls @ 250 mls/hr IV ONETIME ONE Stop: 03/13/20 20:29 Last Admin: 03/13/20 19:46 Dose: 250 mls/hr Documented by: Lactated Ringer's (Ringers, Lactated) 1,000 mls @ 100 mls/hr IV Q10H [facility] Stop: 03/14/20 20:14 Last Admin: 03/14/20 10:15 Dose: 100 mls/hr Documented by: Iopamidol (Isovue Multipack-370 (76%)) 100 ml IVPUSH ONETIME STA Stop: 03/13/20 16:01 Last Admin: 03/13/20 16:03 Dose: 100 ml Documented by: Ketorolac Tromethamine (Toradol) 15 mg IVPUSH ONETIME ONE Stop: 03/13/20 13:58 Last Admin: 03/13/20 14:20 Dose: 15 mg Documented by: Morphine Sulfate (Morphine) 1 mg IVPUSH Q4H PRN PRN Reason: pain Last Admin: 03/14/20 04:15 Dose: 1 mg Documented by: Ondansetron HCl (Zofran Odt) 4 mg PO Q4H PRN PRN Reason: nausea, able to take PO Pantoprazole Sodium (Protonix) 40 mg PO DAILY [facility] Last Admin: 03/15/20 08:30 Dose: 40 mg Documented by: Sodium Chloride (Saline Flush) 10 ml FLUSH ASDIRECTED PRN PRN Reason: Keep Vein Open Last Admin: 03/13/20 14:21 Dose: 10 ml Documented by: Sodium Chloride (Saline Flush) 2.5 ml FLUSH ASDIRECTED PRN PRN Reason: Keep Vein Open Last Admin: 03/13/20 14:20 Dose: 2.5 ml Documented by: - Plan Plan:: I have seen and evaluated the patient and agree with the residents note unless specified in my note
[2020-03-14] MEDS: Enoxaparin 40 MG/0.4 ML Syringe SUBCUT SCH (18:38)
[2020-03-14] MEDS ORDERED: REMDESIVIR (EUA) 100 MG in Sodium Chloride 0.9% 100 ML IV SCH (19:30)
[2020-03-15] MEDS: Codeine/guaiFENesin 10-100 MG/5 ML Syrup 5 ML Cup PO SCH ×4 (00:06→12:16)
[2020-03-15] MEDS: Albuterol/Ipratropium 4 GM Inhalation Spray INH SCH ×4 (02:01→13:13)
[2020-03-15 08:20] LABS: BLOOD UREA NITROGEN,BUN 9 mg/dL (7.0-18.0); CARBON DIOXIDE,CO2 28.4 mmol/L (21.0-32.0); CHLORIDE,CL 107 mmol/L (98-107); GLUCOSE RANDOM 88 mg/dL (74-106); POTASSIUM,K 3.7 mmol/L (3.5-5.1); SODIUM,NA 142 mmol/L (136-145)
[2020-03-15] MEDS: Pantoprazole 40 MG Tab.CR PO SCH (08:30)
[2020-03-15] MEDS: Dexamethasone 4 MG Tab PO SCH (08:30)
[2020-03-15] MEDS: Acetaminophen 325 MG Tab PO PRN (10:40)
--- NOTE | 2020-03-15 13:11 | PCM.DCSUM1 ---
<Valerie Browne - Last Filed: 03/15/20 13:11> Discharge Summary - Hospital Course Brief History: 34-year-old female no significant past medical history presents for cough, chest tightness, shortness of breath, body aches, subjective fever for the last week. She notes that she did have positive exposure to someone that was exposed to Covid while in court last week. She states that about a week ago she had some body aches, generalized weakness, nonproductive cough. Symptoms seem to be improving, but then a couple of days ago she started to have a productive cough, worsening shortness of breath, worsening body aches. Diagnosis: Stroke: No - Discharge Data Discharge Date: 03/15/20 Discharge Disposition: Home, Self-Care 01 Condition: Fair - Referral to Home Health Primary Care Physician: PCP None - Discharge Diagnosis/Problem(s) (1) Transaminitis SNOMED Code(s): 178242574, 664296083 ICD Code: R74.01 - ELEVATION OF LEVELS OF LIVER TRANSAMINASE LEVELS Status: Acute (2) COVID-19 SNOMED Code(s): 745685886 ICD Code: U07.1 - COVID-19 Status: Acute - Patient Summary/Data Consults: Consultations 03/15/20 11:39 Consult to Physician [CONS] Routine Dr. Please follow up with your Primary care doctor for better glucose, LFT's and blood pressure control. There was significantly noted differences in blood pressures on the two different your arms. Please follow up with Dr. Washington in cardiology within a week to get your echo results with consistent follow up. You will likely require repeat echocardiograms. The next likely in 1 month, followed by 6 months and then yearly. Please avoid NSAIDS (advil, ibuprofen, naproxen), strenuous activity and limit alcohol. Hospital Course: Found to be COVID positive and have chest pain with worsening cough on presentation. Had elevated troponin which trended down, therefore thought to have myocarditis. Remains stable per vitals and telemetry, normal echo at bedside- pending official report. Was treated with dexamethasone and Remdesivir for COVID. Due to elevated LFT's; discontinued Remdesivir. Denies any respiratory symptoms besides cough. States Robutssin and Tessalon pearls have helped with cough. Therefore, will be discharged with close PCP/ Cardiology follow up. Sent home with with Combivent and Robutussin AC. - Patient Instructions Diet: Heart Healthy Diet, Diabetic Diet Activity: As Tolerated, No Strenuous Activities Notify Provider of: Fever, Increased Pain - Discharge Plan *PRESCRIPTION DRUG MONITORING PROGRAM REVIEWED*: Not Applicable *COPY OF PRESCRIPTION DRUG MONITORING REPORT IN PATIENT JOAN: Not Applicable Prescriptions/Med Rec: Albuterol/Ipratropium [Combivent Respimat] 1 gm INH Q4HRRT 30 Days #1 inhaler Codeine/guaiFENesin [Robitussin AC] 5 ml PO Q4H 30 Days #1 cup Benzonatate [Tessalon Perle] 100 mg PO TID 14 Days #42 capsule Home Medications: Home Meds Multivitamin [Multiple Vitamins] 1 tab PO DAILY 03/13/20 [History] Albuterol/Ipratropium [Combivent Respimat] 1 gm INH Q4HRRT 30 Days #1 inhaler 03/15/20 [Rx] Benzonatate [Tessalon Perle] 100 mg PO TID 14 Days #42 capsule 03/15/20 [Rx] Codeine/guaiFENesin [Robitussin AC] 5 ml PO Q4H 30 Days #1 cup 03/15/20 [Rx] Oxygen Therapy Mode: Room Air Patient Handouts: Albuterol; Ipratropium respiratory inhalation spray (Combivent Respimat), COVID-19, Codeine; Guaifenesin oral solution or syrup Referrals: Lenny Ortiz MD [Resident] - 03/27/20 3:00 pm Ariel Washington MD [Physician] - 04/13/20 9:30 am (Cardiology nurse will call if there will be earlier appointment available.) - Discharge Summary/Plan Comment DC Time >30 min.: No - Patient Data Vitals - Most Recent: Last Vital Signs Temp 98.2 F 03/15/20 08:00 Pulse 72 03/15/20 08:00 Resp 18 03/15/20 08:00 BP 94/50 L 03/15/20 09:00 Pulse Ox 94 L 03/15/20 08:00 Weight - Most Recent: 120.61 kg I&O - Last 24 hours: Intake & Output 03/14/20 03/15/20 03/15/20 22:59 06:59 14:59 Intake Total 1999 300 Output Total 6091 4028 Balance -1750 -1600 Lab Results - Last 24 hrs: Laboratory Results - last 24 hr 03/15/20 03/15/20 Range/Units 07:40 07:40 WBC 5.89 (4.0-11.0) K/uL RBC 4.65 (4.30-5.90) M/uL Hgb 12.4 (12.0-16.0) g/dL Hct 39.1 (36.0-46.0) % MCV 84.1 (80.0-98.0) fL MCH 26.7 L (27.0-32.0) pg MCHC 31.7 (31.0-37.0) g/dL RDW Std Deviation 44.0 (28.0-62.0) fl RDW Coeff of Enedelia 14 (11.0-15.0) % Plt Count 188 (150-400) K/uL MPV 9.80 (7.40-12.00) fL Neut % (Auto) 55.6 (48.0-80.0) % Lymph % (Auto) 37.4 (16.0-40.0) % [place] % (Auto) 6.5 (0.0-15.0) % Eos % (Auto) 0.2 (0.0-7.0) % Baso % (Auto) 0.3 (0.0-1.5) % Neut # (Auto) 3.3 (1.4-5.7) K/uL Lymph # (Auto) 2.2 (0.6-2.4) K/uL [place] # (Auto) 0.4 (0.0-0.8) K/uL Eos # (Auto) 0.0 (0.0-0.7) K/uL Baso # (Auto) 0.0 (0.0-0.1) K/uL Nucleated RBC % 0.0 /100WBC Nucleated RBCs # 0 K/uL Sodium 142 (136-145) mmol/L Potassium 3.7 (3.5-5.1) mmol/L Chloride 107 (98-107) mmol/L Carbon Dioxide 28.4 (21.0-32.0) mmol/L BUN 9 (7.0-18.0) mg/dL Creatinine 0.8 (0.6-1.0) mg/dL Est Cr Clr Drug Dosing 78.37 mL/min Estimated GFR (MDRD) > 60.0 ml/min Glucose 88 (74-106) mg/dL Calcium 7.7 L (8.5-10.1) mg/dL Total Bilirubin 0.3 (0.2-1.0) mg/dL AST 201 H (15-37) IU/L ALT 270 H (14-63) IU/L Alkaline Phosphatase 128 H (46-116) U/L Total Protein 6.8 (6.4-8.2) g/dL Albumin 2.9 L (3.4-5.0) g/dL Globulin 3.9 (2.6-4.0) g/dL Albumin/Globulin Ratio 0.7 L (0.9-1.6) Med Orders - Current: Current Medications Acetaminophen (Tylenol) 650 mg PO Q4H PRN PRN Reason: Pain (Mild 1-3)/fever Last Admin: 03/15/20 10:40 Dose: 650 mg Documented by: Albuterol/Ipratropium (Combivent Respimat) 0 gm INH Q4HRRT [facility] Stop: 03/23/20 00:02 Last Admin: 03/15/20 09:30 Dose: 1 puff Documented by: Benzonatate (Tessalon Perles) 100 mg PO TID PRN PRN Reason: Cough Last Admin: 03/14/20 19:55 Dose: 100 mg Documented by: Dexamethasone (Dexamethasone) 6 mg PO DAILY [facility] Stop: 03/24/20 09:01 Last Admin: 03/15/20 08:30 Dose: 6 mg Documented by: Enoxaparin Sodium (Lovenox) 60 mg SUBCUT Q24H [facility] Last Admin: 03/14/20 18:38 Dose: 60 mg Documented by: Guaifenesin/Codeine Phosphate (Robitussin Ac) 5 ml PO Q4H [facility] Last Admin: 03/15/20 12:16 Dose: 5 ml Documented by: Morphine Sulfate (Morphine) 1 mg IVPUSH Q4H PRN PRN Reason: pain Last Admin: 03/14/20 04:15 Dose: 1 mg Documented by: Ondansetron HCl (Zofran Odt) 4 mg PO Q4H PRN PRN Reason: nausea, able to take PO Pantoprazole Sodium (Protonix) 40 mg PO DAILY [facility] Last Admin: 03/15/20 08:30 Dose: 40 mg Documented by: Sodium Chloride (Saline Flush) 10 ml FLUSH ASDIRECTED PRN PRN Reason: Keep Vein Open Last Admin: 03/13/20 14:21 Dose: 10 ml Documented by: Sodium Chloride (Saline Flush) 2.5 ml FLUSH ASDIRECTED PRN PRN Reason: Keep Vein Open Last Admin: 03/13/20 14:20 Dose: 2.5 ml Documented by: Discontinued Medications Acetaminophen (Tylenol Extra Strength) 1,000 mg PO ONETIME ONE Stop: 03/13/20 13:57 Last Admin: 03/13/20 14:20 Dose: 1,000 mg Documented by: Albuterol/Ipratropium (Combivent Respimat) 0 gm INH Q4H [facility] Stop: 03/23/20 00:00 Last Admin: 03/14/20 08:10 Dose: Not Given Documented by: Dexamethasone (Decadron) 10 mg IVPUSH ONETIME ONE Stop: 03/13/20 18:07 Last Admin: 03/13/20 19:03 Dose: 10 mg Documented by: Guaifenesin/Codeine Phosphate (Robitussin Ac) 5 ml PO Q4H [facility] Last Admin: 03/14/20 07:30 Dose: Not Given Documented by: Sodium Chloride (Normal Saline) 1,000 mls @ 999 mls/hr IV .Bolus ONE Stop: 03/13/20 14:56 Last Admin: 03/13/20 14:19 Dose: 999 mls/hr Documented by: Remdesivir 200 mg/ Sodium (Chloride) 250 mls @ 250 mls/hr IV ONETIME ONE Stop: 03/13/20 18:10 Last Admin: 03/13/20 19:47 Dose: Not Given Documented by: Lactated Ringer's (Ringers, Lactated) 1,000 mls @ 125 mls/hr IV ASDIRECTED [facility] Last Admin: 03/14/20 05:40 Dose: 125 mls/hr Documented by: Remdesivir 100 mg/ Sodium (Chloride) 100 mls @ 100 mls/hr IV Q24H [facility] Stop: 03/17/20 20:29 Remdesivir 200 mg/ Sodium (Chloride) 250 mls @ 250 mls/hr IV ONETIME ONE Stop: 03/13/20 20:29 Last Admin: 03/13/20 19:46 Dose: 250 mls/hr Documented by: Lactated Ringer's (Ringers, Lactated) 1,000 mls @ 100 mls/hr IV Q10H [facility] Stop: 03/14/20 20:14 Last Admin: 03/14/20 10:15 Dose: 100 mls/hr Documented by: Iopamidol (Isovue Multipack-370 (76%)) 100 ml IVPUSH ONETIME STA Stop: 03/13/20 16:01 Last Admin: 03/13/20 16:03 Dose: 100 ml Documented by: Ketorolac Tromethamine (Toradol) 15 mg IVPUSH ONETIME ONE Stop: 03/13/20 13:58 Last Admin: 03/13/20 14:20 Dose: 15 mg Documented by: <Peter Mejia - Last Filed: 03/18/20 19:10> Discharge Summary - Referral to Home Health Primary Care Physician: PCP None - Patient Summary/Data Consults: Consultations 03/15/20 11:39 Consult to Physician [CONS] Routine - Patient Data Vitals - Most Recent: Last Vital Signs Temp 36.8 C 03/15/20 13:00 Pulse 68 03/15/20 13:00 Resp 18 03/15/20 13:00 BP 115/75 03/15/20 13:00 Pulse Ox 95 03/15/20 13:00 Med Orders - Current: Current Medications Discontinued Medications Acetaminophen (Tylenol Extra Strength) 1,000 mg PO ONETIME ONE Stop: 03/13/20 13:57 Last Admin: 03/13/20 14:20 Dose: 1,000 mg Documented by: Acetaminophen (Tylenol) 650 mg PO Q4H PRN PRN Reason: Pain (Mild 1-3)/fever Last Admin: 03/15/20 10:40 Dose: 650 mg Documented by: Albuterol/Ipratropium (Combivent Respimat) 0 gm INH Q4H [facility] Stop: 03/23/20 00:00 Last Admin: 03/14/20 08:10 Dose: Not Given Documented by: Albuterol/Ipratropium (Combivent Respimat) 0 gm INH Q4HRRT [facility] Stop: 03/23/20 00:02 Last Admin: 03/15/20 13:13 Dose: 1 puff Documented by: Benzonatate (Tessalon Perles) 100 mg PO TID PRN PRN Reason: Cough Last Admin: 03/14/20 19:55 Dose: 100 mg Documented by: Dexamethasone (Decadron) 10 mg IVPUSH ONETIME ONE Stop: 03/13/20 18:07 Last Admin: 03/13/20 19:03 Dose: 10 mg Documented by: Dexamethasone (Dexamethasone) 6 mg PO DAILY [facility] Stop: 03/24/20 09:01 Last Admin: 03/15/20 08:30 Dose: 6 mg Documented by: Enoxaparin Sodium (Lovenox) 60 mg SUBCUT Q24H [facility] Last Admin: 03/14/20 18:38 Dose: 60 mg Documented by: Guaifenesin/Codeine Phosphate (Robitussin Ac) 5 ml PO Q4H [facility] Last Admin: 03/14/20 07:30 Dose: Not Given Documented by: Guaifenesin/Codeine Phosphate (Robitussin Ac) 5 ml PO Q4H [facility] Last Admin: 03/15/20 12:16 Dose: 5 ml Documented by: Sodium Chloride (Normal Saline) 1,000 mls @ 999 mls/hr IV .Bolus ONE Stop: 03/13/20 14:56 Last Admin: 03/13/20 14:19 Dose: 999 mls/hr Documented by: Remdesivir 200 mg/ Sodium (Chloride) 250 mls @ 250 mls/hr IV ONETIME ONE Stop: 03/13/20 18:10 Last Admin: 03/13/20 19:47 Dose: Not Given Documented by: Lactated Ringer's (Ringers, Lactated) 1,000 mls @ 125 mls/hr IV ASDIRECTED [facility] Last Admin: 03/14/20 05:40 Dose: 125 mls/hr Documented by: Remdesivir 100 mg/ Sodium (Chloride) 100 mls @ 100 mls/hr IV Q24H [facility] Stop: 03/17/20 20:29 Remdesivir 200 mg/ Sodium (Chloride) 250 mls @ 250 mls/hr IV ONETIME ONE Stop: 03/13/20 20:29 Last Admin: 03/13/20 19:46 Dose: 250 mls/hr Documented by: Lactated Ringer's (Ringers, Lactated) 1,000 mls @ 100 mls/hr IV Q10H [facility] Stop: 03/14/20 20:14 Last Admin: 03/14/20 10:15 Dose: 100 mls/hr Documented by: Iopamidol (Isovue Multipack-370 (76%)) 100 ml IVPUSH ONETIME STA Stop: 03/13/20 16:01 Last Admin: 03/13/20 16:03 Dose: 100 ml Documented by: Ketorolac Tromethamine (Toradol) 15 mg IVPUSH ONETIME ONE Stop: 03/13/20 13:58 Last Admin: 03/13/20 14:20 Dose: 15 mg Documented by: Morphine Sulfate (Morphine) 1 mg IVPUSH Q4H PRN PRN Reason: pain Last Admin: 03/14/20 04:15 Dose: 1 mg Documented by: Ondansetron HCl (Zofran Odt) 4 mg PO Q4H PRN PRN Reason: nausea, able to take PO Pantoprazole Sodium (Protonix) 40 mg PO DAILY [facility] Last Admin: 03/15/20 08:30 Dose: 40 mg Documented by: Sodium Chloride (Saline Flush) 10 ml FLUSH ASDIRECTED PRN PRN Reason: Keep Vein Open Last Admin: 03/13/20 14:21 Dose: 10 ml Documented by: Sodium Chloride (Saline Flush) 2.5 ml FLUSH ASDIRECTED PRN PRN Reason: Keep Vein Open Last Admin: 03/13/20 14:20 Dose: 2.5 ml Documented by: - Free Text/Narrative Note: I have seen and evaluated the patient. I have discussed findings and treatment plan with resident. I agree with the assessment and plan in the following note.
--- NOTE | 2020-03-19 09:25 | ECHO ---
EXAM DATE: 03/13/20 PATIENT'S AGE: 34 The ECHO report has been scanned into [employer] and can be seen in this patient's EMR (Electronic Medical Record) under the REPORTS section. The report has also been scanned into PACS. RICKEY
== END 2020-03-15 14:30 | disposition home or self-care (01) | DRG 179 ==
LOC: MW.ED 13:26 → MW.MS 18:06
PROVIDERS: ADMIT Student in an Organized Health Care Education/Training Program; ATTEND Student in an Organized Health Care Education/Training Program
PROC: XW033E5 Introduction of Remdesivir Anti-infective into Peripheral Vein, Percutaneous Approach, New Technology Group 5 (ICD-10-PCS; principal; 2020-03-13)
DX: U07.1 COVID-19 (principal); R74.01 Elevation of levels of liver transaminase levels; I51.4 Myocarditis, unspecified; Z90.49 Acquired absence of other specified parts of digestive tract
CPT/HCPCS: 36415; 71045; 71275; 80053; 83605; 83735; 84484 ×2; 85025; 86140; 87635; 96374; 99285; A9270; J1885; J7030; Q9967; 84100; 93010; 93306; 94640; J1100; J1650; J2270; J7050; J7120; J8540; U0002